=== PATIENT | male | born 1950 | race Caucasian/White ===

== ENCOUNTER 2019-06-10 07:22 | Outpatient (CLI) | payer BC ==
--- NOTE | 2019-06-11 10:39 | Ultrasound Report ---
Reason: SCREENING FOR AAA, HX SMOKING Procedure Date: 06/10/2019 Accession Number: [id number] / [id number] Procedure: US - Aorta Screening CPT Code: FULL RESULT: EXAM: AORTIC DOPPLER ULTRASOUND EXAM DATE: 06/10/2019 07:58 AM. CLINICAL HISTORY: Screening for AAA, history of smoking. COMPARISON: None. TECHNIQUE: Real-time sonographic imaging of retroperitoneal vascular structures, including color-flow, Doppler flow and spectral analysis was performed by the lawyer real estate. Multiple career services representative static images were saved for review. FINDINGS: Aorta: The abdominal aorta was adequately visualized. No evidence for abdominal aortic aneurysm. AORTA: Proximal: Sagittal plane AP measurement: 2.8 cm. Mid: Transverse plane measurements: 2.4 x 2.6 cm. Distal: Transverse plane measurements: 2.0 x 2.4 cm. Caliber WNL: Yes. Plaque visualized: Yes. ILIACS: Right: Transverse plane measurements: 1.4 x 1.2 cm. Left: Transverse plane measurements: 1.3 x 1.4 cm. Iliac Vessels: The visualized proximal common iliac arteries are normal in caliber. Other: None. IMPRESSION: Normal. No abdominal aortic aneurysm. RADIA
== END 2019-06-10 07:23 | disposition home or self-care (01) ==
LOC: DI 07:22
PROVIDERS: ATTEND Family Medicine
DX: Z13.6 Encounter for screening for cardiovascular disorders (principal); Z87.891 Personal history of nicotine dependence
CPT/HCPCS: 76706

== ENCOUNTER 2020-11-18 11:58 | Outpatient (CLI) | payer MEDICARE, BC ==
--- NOTE | 2020-11-18 13:11 | XRAY Report ---
PROCEDURE: Toe(s) RT INDICATIONS: RIGHT GREAT TOE PAIN TECHNIQUE: 3 views of the per toe(s) acquired. COMPARISON: None FINDINGS: Bones: No fractures or dislocations. No suspicious bony lesions. Soft tissues: No suspicious soft tissue densities. IMPRESSION: No visualized acute fracture or dislocation. However, occult injury cannot be excluded. Recommend enrique rt interval imaging follow-up in 7-10 days as clinically indicated for additional evaluation. Reviewed by: Gloria Chappell MD on 11/18/2020 1:09 PM PDT Approved by: Gloria Chappell MD on 11/18/2020 1:09 PM PDT Station ID: [id number]
== END 2020-11-18 23:59 | disposition home or self-care (01) ==
LOC: DI.S 11:58
PROVIDERS: ATTEND Physician Assistant Medical
DX: M79.674 Pain in right toe(s) (principal)

== ENCOUNTER 2021-10-13 18:57 | Outpatient (CLI) | payer MEDICARE, OTHER | END 2021-10-13 18:58 | disposition critical access hospital (66) | LOC: EMS 18:57 | DX: R42 Dizziness and giddiness (principal); R11.2 Nausea with vomiting, unspecified | CPT/HCPCS: A0425; A0427 ==

== ENCOUNTER 2021-10-13 19:41 | Emergency (ER) | payer MEDICARE, OTHER ==
[2021-10-13 19:49] VITALS: BP 156/83
[2021-10-13] MEDS ORDERED: MECLIZINE 12.5 MG TABLET PO STA (19:50)
--- NOTE | 2021-10-13 20:12 | ED Physician Documentation ---
History of Present Illness - Stated complaint Stated Complaint: DIZZY - Chief complaint Chief Complaint: General - History obtained from History obtained from: Patient - History of Present Illness Timing: Today Pain level max: 0 Pain level now: 0 - Additonal information Additional information: 70-year-old male presents the emergency department complaining of the room spinning today. He states that it started when he got out of bed this morning and has been intermittent throughout the day. He states he did a Google search and read about vertigo and the Solomon maneuver so he attempted the Solomon maneuver which made the dizziness worse and he began to vomit. At that point he called 911. Currently he is feeling better. Was given Zofran by EMS. He states the symptoms currently are very mild. No focal neurological deficits. No numbness or tingling. He states he has a longstanding history of sinus issues with multiple sinus surgeries and a ruptured left eardrum x2. Currently does not have any URI symptoms. Worse with movement, better with remaining still Review of Systems Ten Systems: 10 systems reviewed and negative Constitutional: denies: Fever, Chills GI: denies: Vomiting, Diarrhea Skin: denies: Rash Musculoskeletal: denies: Neck pain, Back pain Neurologic: denies: Focal weakness, Numbness, Headache, Head injury, LOC PD PAST MEDICAL HISTORY - Past Medical History Past Medical History: No - Past Surgical History Past Surgical History: Yes HEENT: Other (Sinus surgery) - Present Medications Home Medications: Ambulatory Orders Medication Instructions Recorded Confirmed Meclizine HCl [Motion Sickness] 25 mg PO Q6H PRN #30 tablet 10/13/21 Ondansetron Odt [Zofran] 4 mg TL Q6H PRN #10 tablet 10/13/21 Pravastatin [Pravachol] 40 mg 10/13/21 - Allergies Allergies/Adverse Reactions: Allergies Allergy/AdvReac Type Severity Reaction Status Date / Time No Known Drug Allergies Allergy Verified 10/13/21 19:49 - Living Situation Living Situation: reports: With family - Social History Does the pt have substance abuse?: No - Family History Family history: reports: Non contributory PD ED PE NORMAL - Vitals Vital signs reviewed: Yes - General General: Alert and oriented X 3, No acute distress, Well developed/nourished - HEENT HEENT: PERRL, Moist mucous membranes - Neck Neck: Supple, no meningeal sign - Cardiac Cardiac: RRR, Strong equal pulses - Respiratory Respiratory: No respiratory distress, Clear bilaterally - Abdomen Abdomen: Soft, Non tender, Non distended - Derm Derm: Warm and dry - Extremities Extremities: No edema, No calf tenderness / cord - Neuro Neuro: Alert and oriented X 3, practice consultant 2-12 intact, No motor deficit, No sensory deficit, Normal speech Eye Opening: Spontaneous Motor: Obeys Commands Verbal: Oriented GCS Score: 15 - Psych Psych: Normal mood, Normal affect - Free text exam Free text exam: Positive Hallpike to the left Results - Vitals Vitals: Vital Signs - 24 hr 10/13/21 19:46 Temperature 36.5 C Heart Rate 71 Respiratory 20 Rate Blood Pressure 156/83 H O2 Saturation 98 Oxygen O2 Source Room air PD MEDICAL DECISION MAKING - ED course Complexity details: reviewed results, re-evaluated patient, considered differential, d/w patient ED course: 70-year-old male with what appears to be BPPV. He feels much better after meclizine. Tolerating p.o. without difficulty. No nausea or vomiting. Ambulating with a steady gait. No signs of cerebellar infarct. Normal cerebellar testing other than the Hallpike positive to the left. We will place on meclizine and Zofran for home and continue supportive care. Patient counseled regarding signs and symptoms for which I believe and urgent re- evaluation would be necessary. Patient with good understanding of and agreement to plan and is comfortable going home at this time This document was made in part using voice recognition software. While efforts are made to proofread this document, sound alike and grammatical errors may occur. Departure - Departure Disposition: 01 Home, Self Care Clinical Impression: Vertigo Condition: Good Instructions: ED Vertigo Unspecified Follow-Up: Brien Chen MD [Primary Care Provider] - Within 1 week Prescriptions: Meclizine HCl [Motion Sickness] 25 mg PO Q6H PRN #30 tablet PRN Reason: Dizziness Ondansetron Odt [Zofran] 4 mg TL Q6H PRN #10 tablet PRN Reason: Nausea / Vomiting Comments: Your prescriptions were sent to [facility] in [place]. Please follow-up with your doctor for further care. Return if you worsen.
== END 2021-10-13 21:12 | disposition home or self-care (01) ==
LOC: EDUNIT# → ED 19:41
DX: R42 Dizziness and giddiness (principal)
CPT/HCPCS: 99282; 99283; A9270